=== PATIENT | male | born 1990 | race Caucasian/White ===

== ENCOUNTER 2025-07-26 05:00 | Emergency (ER) | payer BC ==
[~2025-07-26] VITALS: Ht 180.3 cm; Wt 81.6 kg
[2025-07-26 06:26] VITALS: BP 144/79; TEMP 98.4; O2SAT 98
[2025-07-26] MEDS ORDERED: CEFD300C3 PO (07:03)
[2025-07-26] MEDS ORDERED: CLIN300C12 PO (07:03)
[2025-07-26] MEDS ORDERED: PRED50TA PO (07:03)
== END 2025-07-26 07:10 | disposition home or self-care (01) ==
LOC: ER 05:30
DX: H66.92 Otitis media, unspecified, left ear (principal); Z79.52 Long term (current) use of systemic steroids; Z60.2 Problems related to living alone